=== PATIENT | male | born 1955 | race Caucasian/White ===

== ENCOUNTER 2017-09-18 12:07 | Inpatient (IN) | payer OTHER ==
[~2017-09-18] VITALS: Ht 170.2 cm; Wt 95.0 kg
[2017-09-18] MEDS ORDERED: SODIUM CHLORIDE FLUSH 10ML SYR IVF ONE (14:00)
[2017-09-18] MEDS ORDERED: SODIUM CHLORIDE 0.9% 1,000ML IVBOLUS ONE (14:00)
[2017-09-18] MEDS ORDERED: ONDANSETRON 2MG/ML, 2ML IVPush ONE (14:00)
[2017-09-18] MEDS ORDERED: HYDROmorphone 1 MG/ML, 1ML ONE ×2 (14:26→18:39)
[2017-09-18] MEDS ORDERED: ONDANSETRON 2MG/ML, 2ML ONE (14:26)
[2017-09-18] MEDS: HYDROmorphone 1 MG/ML, 1ML IVPush PRN ×2 (14:34→18:45)
[2017-09-18 14:37] LABS: HEMATOCRIT 42.1 % (39.2-51.8); HEMOGLOBIN 13.8 g/dL (13.7-18.0); WHITE BLOOD COUNT 10.7 x10^3/uL (3.4-10)
[2017-09-18 14:45] LABS: ASPARTATE AMINO TRANSFERASE 51 U/L (15-37); BLOOD UREA NITROGEN 14 mg/dL (7-18)
[2017-09-18 15:08] LABS: DIFF TOTAL CELLS COUNTED 100 CELL DIFF
[2017-09-18 15:14] LABS: VERIFY COUNTS? YES
[2017-09-18] MEDS ORDERED: OMNIPAQUE 350 MG/ML, 100ML BOTTLE ONE (16:06)
[2017-09-18] MEDS: POTASSIUM CHLORIDE 20 MEQ in SODIUM CHLORIDE 0.45% 1,000 ML IV SCH ×4 (17:00→21:00)
[2017-09-18] MEDS ORDERED: CIPROFLOXACIN/PMX 400MG/200ML 100 ML IVPB ONE (19:00)
[2017-09-18] MEDS ORDERED: METRONIDAZOLE PMX 500MG/100ML 100 ML IVPB ONE (19:00)
[2017-09-18] MEDS ORDERED: CIPROFLOXACIN/PMX 400MG/200ML 200 ML ONE (19:13)
[2017-09-18] MEDS ORDERED: METRONIDAZOLE PMX 500MG/100ML 100 ML ONE (19:13)
[2017-09-18] MEDS ORDERED: ASPI-496 PO (19:26)
[2017-09-18] MEDS ORDERED: SODIUM CHLORIDE FLUSH 10ML SYR IVF PRN (19:30)
[2017-09-18] MEDS ORDERED: ACETAMINOPHEN 325 MG TABLET PO PRN (20:00)
[2017-09-18] MEDS ORDERED: ONDANSETRON 2MG/ML, 2ML IVPush PRN (20:00)
[2017-09-18 21:00] VITALS: BP 118/87
[2017-09-18] MEDS: NS + 20MEQ KCL 1,000 ML IV SCH (22:13)
[2017-09-18] MEDS: CIPROFLOXACIN/PMX 400MG/200ML 200 ML IV SCH (22:14)
[2017-09-18] MEDS: morphine SULFATE 10 MG/ML, 1ML IVPush PRN (22:15)
[2017-09-18] MEDS: NICOTINE 21 MG/24 HR PATCH.TD24 TD SCH (22:15)
[2017-09-19 01:35] VITALS: BP 127/86
[2017-09-19] MEDS: morphine SULFATE 10 MG/ML, 1ML IVPush PRN ×6 (01:37→22:39)
[2017-09-19] MEDS: METRONIDAZOLE PMX 500MG/100ML 100 ML IV SCH ×3 (01:37→17:44)
[2017-09-19 04:39] LABS: HEMATOCRIT 39.6 % (39.2-51.8); HEMOGLOBIN 13.4 g/dL (13.7-18.0); WHITE BLOOD COUNT 9.8 x10^3/uL (3.4-10)
[2017-09-19 04:52] LABS: BLOOD UREA NITROGEN 12 mg/dL (7-18)
[2017-09-19 04:56] LABS: ASPARTATE AMINO TRANSFERASE 26 U/L (15-37)
[2017-09-19 05:42] LABS: DIFF TOTAL CELLS COUNTED 100 CELL DIFF
[2017-09-19 05:44] LABS: VERIFY COUNTS? YES
[2017-09-19 07:42] VITALS: BP 149/79
[2017-09-19] MEDS: NS + 20MEQ KCL 1,000 ML IV SCH (08:00)
[2017-09-19] MEDS: CIPROFLOXACIN/PMX 400MG/200ML 200 ML IV SCH ×2 (11:21→22:38)
[2017-09-19 13:24] VITALS: BP 131/79
[2017-09-19] MEDS: NS + 40MEQ KCL 1,000 ML IV SCH (13:55)
[2017-09-19 21:06] VITALS: BP 146/89
[2017-09-19] MEDS: NICOTINE 21 MG/24 HR PATCH.TD24 TD SCH (22:38)
[2017-09-20 01:16] VITALS: BP 141/88
[2017-09-20] MEDS: METRONIDAZOLE PMX 500MG/100ML 100 ML IV SCH ×3 (01:49→17:04)
[2017-09-20] MEDS: NS + 40MEQ KCL 1,000 ML IV SCH ×2 (01:49→15:49)
[2017-09-20] MEDS: morphine SULFATE 10 MG/ML, 1ML IVPush PRN ×5 (02:49→22:04)
[2017-09-20 07:19] LABS: HEMATOCRIT 39.3 % (39.2-51.8); WHITE BLOOD COUNT 10.3 x10^3/uL (3.4-10)
[2017-09-20 07:25] LABS: ASPARTATE AMINO TRANSFERASE 12 U/L (15-37); BLOOD UREA NITROGEN 5 mg/dL (7-18)
[2017-09-20 07:35] VITALS: BP 129/87
[2017-09-20 07:55] LABS: DIFF TOTAL CELLS COUNTED 200 CELL DIFF; VERIFY COUNTS? YES
[2017-09-20] MEDS: CIPROFLOXACIN/PMX 400MG/200ML 200 ML IV SCH ×2 (11:21→22:22)
[2017-09-20 13:33] VITALS: BP 130/80
[2017-09-20 14:05] VITALS: BP 134/86
[2017-09-20 19:02] VITALS: BP 151/82
[2017-09-20] MEDS: NICOTINE 21 MG/24 HR PATCH.TD24 TD SCH (19:55)
[2017-09-21] MEDS: NS + 40MEQ KCL 1,000 ML IV SCH ×2 (02:01→16:07)
[2017-09-21] MEDS: morphine SULFATE 10 MG/ML, 1ML IVPush PRN ×6 (02:05→23:33)
[2017-09-21] MEDS: METRONIDAZOLE PMX 500MG/100ML 100 ML IV SCH ×3 (02:05→17:49)
[2017-09-21 02:12] VITALS: BP 155/90
[2017-09-21 05:51] LABS: HEMATOCRIT 37.1 % (39.2-51.8); HEMOGLOBIN 12.4 g/dL (13.7-18.0); WHITE BLOOD COUNT 8.3 x10^3/uL (3.4-10)
[2017-09-21 05:59] LABS: BLOOD UREA NITROGEN 6 mg/dL (7-18)
[2017-09-21 06:10] LABS: DIFF TOTAL CELLS COUNTED 100 CELL DIFF
[2017-09-21 06:15] LABS: VERIFY COUNTS? YES
[2017-09-21 07:30] VITALS: BP 144/94
[2017-09-21] MEDS: CIPROFLOXACIN/PMX 400MG/200ML 200 ML IV SCH ×2 (11:07→23:21)
[2017-09-21 13:52] VITALS: BP 142/86
[2017-09-21 19:17] VITALS: BP 128/81
[2017-09-21] MEDS: NICOTINE 21 MG/24 HR PATCH.TD24 TD SCH (22:00)
[2017-09-22 01:49] VITALS: BP 137/83
[2017-09-22] MEDS: morphine SULFATE 10 MG/ML, 1ML IVPush PRN ×4 (02:31→11:23)
[2017-09-22] MEDS: METRONIDAZOLE PMX 500MG/100ML 100 ML IV SCH ×2 (02:31→11:09)
[2017-09-22] MEDS: NS + 40MEQ KCL 1,000 ML IV SCH (05:07)
[2017-09-22 06:49] VITALS: BP 122/81
[2017-09-22 07:52] LABS: HEMATOCRIT 36.9 % (39.2-51.8); HEMOGLOBIN 12.2 g/dL (13.7-18.0); WHITE BLOOD COUNT 8.4 x10^3/uL (3.4-10)
[2017-09-22 08:03] LABS: BLOOD UREA NITROGEN 4 mg/dL (7-18)
[2017-09-22 08:34] LABS: DIFF TOTAL CELLS COUNTED 100 CELL DIFF
[2017-09-22 08:48] LABS: VERIFY COUNTS? YES
[2017-09-22 08:49] LABS: ANISOCYTOSIS 1+
[2017-09-22] MEDS ORDERED: METR500T PO (11:51)
[2017-09-22] MEDS ORDERED: CIPR750T PO (11:51)
[2017-09-22] MEDS ORDERED: HYDR-3240 PO (11:52)
== END 2017-09-22 13:09 | disposition home or self-care (01) | DRG 871 ==
LOC: ED 17:56 → EDIP 19:05 → 3NW 20:33 → DCLOUNGE 09-22 12:53
PROVIDERS: ADMIT Hospitalist; ATTEND Hospitalist
DX: A41.9 Sepsis, unspecified organism (principal); E43 Unspecified severe protein-calorie malnutrition; E87.1 Hypo-osmolality and hyponatremia; K52.9 Noninfective gastroenteritis and colitis, unspecified; R65.10 Systemic inflammatory response syndrome (SIRS) of non-infectious origin without acute organ dysfunction; D72.825 Bandemia; D75.89 Other specified diseases of blood and blood-forming organs; E87.6 Hypokalemia; F17.210 Nicotine dependence, cigarettes, uncomplicated; I70.0 Atherosclerosis of aorta; R00.0 Tachycardia, unspecified; Z90.49 Acquired absence of other specified parts of digestive tract; Z68.32 Body mass index [BMI] 32.0-32.9, adult
CPT/HCPCS: 36415; 74177; 80048; 80053; 81003; 82607; 82746; 83735; 84443; 85025; 85610; 87046; 87324; 87328; 87329; 89055; 96361; 96365; 96375; 96376; J0744; J1170; J2405; J3480; Q9967; J2270; J7030

== ENCOUNTER → 2017-09-27 | Outpatient (CLI) | payer OTHER ==
[~2017-09-27] MED LIST: ASPI-496 PO; CIPR750T PO; HYDR-3240 PO; METR500T PO
== END ==
LOC: RAD 15:16
DX: R60.0 Localized edema (principal); M79.605 Pain in left leg
CPT/HCPCS: 93970